=== PATIENT | male | born 1995 | race Caucasian/White ===

== ENCOUNTER 2022-04-29 15:07 | Emergency (ER) | payer OTHER ==
[2022-04-29 15:14] VITALS: BP 130/80
--- NOTE | 2022-04-29 16:06 | ED Physician Documentation ---
PD HPI HEENT - Stated complaint Stated Complaint: RT EAR PAIN - Chief complaint Chief Complaint: Heent - History obtained from History obtained from: Patient (He has chronic chronic problems with earwax issues and was cleaning his ears today and now cannot hear and has pressure from the right ear.) Review of Systems Constitutional: denies: Fever, Chills Nose: denies: Rhinorrhea / runny nose, Congestion Throat: denies: Sore throat PD PAST MEDICAL HISTORY - Allergies Allergies/Adverse Reactions: Allergies Allergy/AdvReac Type Severity Reaction Status Date / Time No Known Drug Allergies Allergy Verified 04/29/22 15:11 PD ED PE NORMAL - Vitals Vital signs reviewed: Yes - General General: Alert and oriented X 3, No acute distress - HEENT HEENT: Other (Bilateral cerumen impaction, subsequent to cerumen removal TMs looks normal.) - Neuro Neuro: Alert and oriented X 3, Normal speech Results - Vitals Vitals: Vital Signs - 24 hr 04/29/22 15:11 Temperature 36.5 C Heart Rate 86 Respiratory 16 Rate Blood Pressure 130/80 O2 Saturation 96 Oxygen O2 Source Room air Procedures - General procedure General procedure: Using syringe irrigation with body temperature water both ears were cleared of cerumen. Departure - Departure Disposition: 01 Home, Self Care Clinical Impression: Impacted cerumen of both ears Condition: Good Record reviewed to determine appropriate education?: Yes Instructions: Earwax Impacted
== END 2022-04-29 16:17 | disposition home or self-care (01) ==
LOC: ED 15:07
DX: H61.23 Impacted cerumen, bilateral (principal)
CPT/HCPCS: 99281

== ENCOUNTER 2023-01-24 17:59 | Emergency (ER) | payer OTHER ==
[2023-01-24 18:06] VITALS: BP 149/100
--- NOTE | 2023-01-24 18:57 | XRAY Report ---
PROCEDURE: Knee 4 View RT INDICATIONS: Trauma TECHNIQUE: 4 views of the right knee(s) were acquired. COMPARISON: None. FINDINGS: Bones: No fractures or dislocations. Tricompartment osteophytosis. No suspicious bony lesions. Alma or ACL repair. Soft tissues: No effusion. No suspicious soft tissue calcifications or masses. IMPRESSION: No acute osseous abnormality. Consider follow-up MRI. Reviewed by: Aashish Ambriz MD on 01/24/2023 6:56 PM PDT Approved by: Aashish Ambriz MD on 01/24/2023 6:56 PM PDT Station ID: [id number]
[2023-01-24] MEDS ORDERED: IBUPROFEN 800 MG TABLET PO STA (19:22)
--- NOTE | 2023-01-24 19:23 | ED Physician Documentation ---
PD HPI LOWER EXT INJURY - Stated complaint Stated Complaint: RT KNEE PX - Chief complaint Chief Complaint: Trauma Ext - History obtained from History obtained from: Patient - Additional information Additional information: Patient is a 27-year-old male, [employer] presenting for evaluation of right knee pain that started around 1658 this evening. Patient states he was doing an easy dog as a warm up for exercise when he felt a pop in his right knee. He denies he was pivoting or doing any other abnormal motions other than an EC dog. He did not fall or strike his knee. He has had pain to the knee since then and has pain with ambulation. He does have a history of a prior ACL repair to this extremity approximately 11 years ago from a football injury. He does not take any medications including no blood thinners. He denies injuries elsewhere. Review of Systems Constitutional: denies: Fever Cardiac: denies: Chest pain / pressure Respiratory: denies: Dyspnea GI: denies: Abdominal Pain Musculoskeletal: reports: Joint pain Neurologic: denies: Head injury PD PAST MEDICAL HISTORY - Present Medications Home Medications: Ambulatory Orders Medication Instructions Recorded Confirmed No Known Home Medications 01/24/23 01/24/23 - Allergies Allergies/Adverse Reactions: Allergies Allergy/AdvReac Type Severity Reaction Status Date / Time No Known Drug Allergies Allergy Verified 04/29/22 15:11 PD ED PE NORMAL - General General: Alert and oriented X 3, No acute distress, Well developed/nourished - HEENT HEENT: Atraumatic - Neck Neck: Supple, no meningeal sign - Cardiac Cardiac: Strong equal pulses - Respiratory Respiratory: No respiratory distress - Extremities Extremities: No deformity, Normal ROM s pain, No edema, No calf tenderness / cord, Other (Mild tenderness to right knee, no laxity,) - Neuro Neuro: No motor deficit, No sensory deficit Results - Vitals Vitals: Vital Signs - 24 hr 01/24/23 18:04 Temperature 36.6 C Heart Rate 79 Respiratory 14 Rate Blood Pressure 149/100 H O2 Saturation 95 Oxygen O2 Source Room air PD Medical Decision Making - ED course Complexity details: reviewed results, re-evaluated patient, d/w patient ED course: Patient presenting for evaluation of right-sided knee pain that occurred while jogging.No mechanism to suggest knee dislocation. He is neurovascularly intact. He has good range of motion. There are no visible deformities or significant swelling. No signs of infection. An x-ray was obtained which I reviewed I do not see signs for fracture or dislocation.Patient was given a knee immobilizer and crutches. He is understanding that [facility] and may need further imaging. He was instructed on continuing with supportive care and is advised on concerning symptoms to return for. Departure - Departure Disposition: 01 Home, Self Care Clinical Impression: Right knee injury Condition: Stable Instructions: ED Knee Pain UKO Comments: Your x-ray is negative for a broken bone or a dislocation causing your knee pain. However there are other injuries that may not show up on an x-ray.Tonight we will place you into a knee immobilizer and have you use crutches to stay off the leg until you are able to put weight on it without it hurting. In the meanwhile I would have you continue with anti-inflammatory such as ibuprofen or acetaminophen, ice, elevating it when you are able to. Please [facility] as you may need additional imaging such as an MRI. Forms: Activity restrictions Discharge Date/Time: 01/24/23 19:48
== END 2023-01-24 19:48 | disposition home or self-care (01) ==
LOC: ED 17:59
DX: S89.91XA Unspecified injury of right lower leg, initial encounter (principal); X58.XXXA Exposure to other specified factors, initial encounter; Y93.B9 Activity, other involving muscle strengthening exercises
CPT/HCPCS: 73564; 99283; A9270

== ENCOUNTER 2023-11-22 14:22 | Outpatient (CLI) | payer OTHER ==
--- NOTE | 2023-11-22 19:46 | MRI Report ---
PROCEDURE: Knee RT WO INDICATIONS: RIGHT KNEE PAIN TECHNIQUE: Noncontrast sagittal PD fast spin echo and T2 fast spin echo with fat saturation, sagittal 3-D gradie nt sequence with fat saturation; coronal T1 spin echo and PD fast spin echo with fat saturation, and axial PD fast spin echo with fat saturation through the knee. COMPARISON: Right knee radiograph dated 01/24/2023. FINDINGS: Image quality: Excellent. Menisci: The medial and lateral menisci demonstrate normal morphology and internal signal. The meni scal root ligaments appear intact. Cruciate ligaments: Patient is status post prior ACL reconstruction. Markedly thickened ACL graft wit h intrasubstance T2 hyperintense signal. Posterior bowing of the ACL graft is seen concerning for gra ft impingement. The posterior cruciate ligament is intact. Medial structures: The medial collateral ligament appears thickened with intrasubstance T2 hyperinte nse signal. Visualized portions of the pes anserinus tendons appear normal. No abnormal bursal fluid . Lateral structures: The lateral collateral ligament, long and short heads of the biceps femoris tend on appear intact. There is low-grade partial-thickness tear involving popliteus tendon extending to m usculotendinous junction. Iliotibial band appears normal. Anterior structures: Distal quadriceps tendinosis is seen. Patellar tendon is intact. Patellar alignm ent is normal. No femoral trochlear dysplasia or ventral trochlear prominence. No edema in the infr apatellar fat pad. Bones and cartilage: No gross signal abnormality is seen in femoral condyle and tibial condyle. No gr oss marrow edema. No acute fracture or dislocation. Mild to moderate tricompartmental osteoarthritis and chondromalacia is seen more notably medial femoral tibial compartment. Joint space: There is moderate to large knee joint fluid. No Ibrahim's cyst. Normal appearing synovi al plicae are incidentally noted. IMPRESSION: 1. Prior ACL reconstruction with thickened ACL graft and intrasubstance T2 hyperintense signal concer sharif for low-grade intrasubstance partial thickness tear. No full-thickness ACL graft rupture. The PC L is intact. 2. Posterior bowing of ACL graft, concerning for graft impingement. 3. No abnormal anterior tibial translation. 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 No fracture or dislocation. Moderate to la rge joint effusion, no gross loose bodies. 4. Low to moderate grade MCL sprain/partial thickness tear. Low-grade partial-thickness tear involvin g popliteus tendon extending to musculotendinous junction. 5. Distal quadriceps tendinosis. Reviewed by: Humberto Smyth MD on 11/22/2023 7:45 PM PST Approved by: Humberto Smyth MD on 11/22/2023 7:45 PM PST Station ID: [id number]
== END 2023-11-22 14:23 | disposition home or self-care (01) ==
LOC: DI 14:22
DX: M17.11 Unilateral primary osteoarthritis, right knee (principal); M25.461 Effusion, right knee; S83.411A Sprain of medial collateral ligament of right knee, initial encounter; S39.012A Strain of muscle, fascia and tendon of lower back, initial encounter; R93.6 Abnormal findings on diagnostic imaging of limbs; R93.89 Abnormal findings on diagnostic imaging of other specified body structures